=== PATIENT | female | born 1950 | race Caucasian/White ===

== ENCOUNTER 2017-02-26 08:39 | Emergency (ER) | payer OTHER ==
[~2017-02-26] VITALS: Ht 167.6 cm; Wt 49.9 kg
--- NOTE | ~2017-02-26 | EKG ---
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1950 Requested By: Abida Briones Order Number: [id number] MD: Parminder Celis Measurements Intervals [place] Rate: 116 P: 58 NH: 152 QRS: -2 QRSD: 77 T: 84 QT: 336 QTc: 467 Interpretive Statements Sinus tachycardia Probable left atrial enlargement Probable left ventricular hypertrophy Anterior Q waves, possibly due to LVH No previous ECG available for comparison Electronically Signed On 02-26-2017 12:01:18 [employer] by Parminder Celis [email or web address] <ELECTRONICALLY SIGNED> By: Parminder Celis MD 02/26/17 1201 2 Parminder Celis MD /ROSALINO
[2017-02-26 08:39] VITALS: BP 169/113
[2017-02-26 09:04] LABS: BE(vivo) -5.9 mmol/L (-2 to +3); HCO3 18.7 mmol/L (22.0-26.0); PCO2 33.7 mmHg (35.0-45.0); PO2 83.7 mmHg (80.0-100.0); pH 7.363 (7.360-7.450); sO2 96.1 % (92.0-98.0)
[2017-02-26] MEDS ORDERED: ASA5UEC PO (09:04)
[2017-02-26] MEDS ORDERED: NORVASC 5 MG TAB5 MG PO (09:04)
[2017-02-26 09:05] LABS: HEMOGLOBIN 9.7 gm/dL (12.0-15.0); MCH 29.8 pg (26.0-34.0); RBC 3.26 mil/uL (4.20-5.00); RDW 17.9 % (10.5-14.5)
[2017-02-26] MEDS ORDERED: ROBITUSSIN100 MG/53 PO (09:05)
[2017-02-26] MEDS ORDERED: ACYCLOVIR 400400 MG PO (09:06)
[2017-02-26] MEDS ORDERED: TESSALON PERLE100 MG PO (09:06)
[2017-02-26 09:07] LABS: HEMATOCRIT 29.1 % (37.0-47.0); MCHC 33.4 g/dL (28.0-37.0); MCV 89.2 fL (80.0-100.0); WBC 2.9 thou/uL (4.0-11.0)
[2017-02-26] MEDS ORDERED: ERGOCALCIF50000 UNIT PO (09:07)
[2017-02-26] MEDS ORDERED: DAPSONE100 MG PO (09:07)
[2017-02-26 09:13] LABS: APTT 25.2 Seconds (24.5-32.8); PROTIME 10.2 Seconds (9.3-11.4)
[2017-02-26 09:20] LABS: CREATININE 8.8 mg/dL (0.6-1.0); POTASSIUM 5.4 mmol/L (3.5-5.1)
[2017-02-26 09:25] LABS: ALBUMIN 3.6 g/dL (3.4-5.0); DIRECT BILIRUBIN 0.2 mg/dL (<0.1-0.3); TOTAL BILIRUBIN 0.9 mg/dL (<0.1-1.0); TOTAL PROTEIN 6.7 g/dL (6.4-8.2)
[2017-02-26 09:28] LABS: TROPONIN-I 0.08 ng/mL (<0.06)
[2017-02-26 10:20] LABS: ABSOLUTE NEUTROPHILS 1.9 thou/uL (1.4-8.2); PLATELET COUNT 44 thou/uL (150-400); PLATELET ESTIMATE DECREASED
[2017-02-26 14:07] VITALS: BP 155/89
== END 2017-02-26 14:15 | disposition short-term general hospital (02) ==
LOC: ER 08:39 → EROBS 09:46
PROVIDERS: Emergency Medicine
DX: J96.90 Respiratory failure, unspecified, unspecified whether with hypoxia or hypercapnia (principal); R07.9 Chest pain, unspecified; E87.5 Hyperkalemia; D61.818 Other pancytopenia

== ENCOUNTER 2019-05-22 13:18 | Emergency (ER) | payer OTHER ==
[~2019-05-22] VITALS: Ht 167.6 cm; Wt 49.9 kg
[~2019-05-22 13:18] MED LIST: ACYCLOVIR 400400 MG PO; ASA5UEC PO; DAPSONE100 MG PO; ERGOCALCIF50000 UNIT PO; NORVASC 5 MG TAB5 MG PO; ROBITUSSIN100 MG/53 PO; TESSALON PERLE100 MG PO
[2019-05-22 13:45] LABS: ABSOLUTE NEUTROPHILS 7.9 thou/uL (1.4-8.2); BASOPHILS 0.4 % (0.0-2.0); EOSINOPHILS 0.2 % (0.0-3.0); HEMATOCRIT 32.1 % (37.0-47.0); HEMOGLOBIN 10.9 gm/dL (12.0-15.0); LYMPHOCYTES 15.8 % (24.0-44.0); MCH 31.1 pg (26.0-34.0); MCHC 33.8 g/dL (28.0-37.0); MCV 91.9 fL (80.0-100.0); MONOCYTES 11.1 % (1.0-8.0); PLATELET COUNT 177 thou/uL (150-400); POLYS 72.5 % (36.0-66.0); RBC 3.49 mil/uL (4.20-5.00); RDW 16.4 % (10.5-14.5); WBC 10.9 thou/uL (4.0-11.0)
[2019-05-22 14:02] LABS: CALCIUM 8.5 mg/dL (8.5-10.1); POTASSIUM 4.1 mmol/L (3.5-5.1)
[2019-05-22 14:08] LABS: ALBUMIN 2.7 g/dL (3.4-5.0); TOTAL BILIRUBIN 0.7 mg/dL (<0.1-1.0); TOTAL PROTEIN 5.5 g/dL (6.4-8.2)
[2019-05-22 15:16] LABS: URINE BILIRUBIN NEGATIVE (Negative); URINE BLOOD NEGATIVE (Negative); URINE CLARITY CLEAR; URINE COLOR YELLOW; URINE GLUCOSE-RANDOM* NEGATIVE (Negative); URINE KETONES TRACE (Negative); URINE LEUKOCYTES-REFLEX NEGATIVE (Negative); URINE NITRITE-REFLEX NEGATIVE (Negative); URINE PROTEIN (DIPSTICK) TRACE (Negative); URINE SPECIFIC GRAVITY 1.025 (1.005-1.035)
[2019-05-22 16:09] VITALS: BP 118/72
--- NOTE | 2019-05-23 09:57 | EKG ---
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 : 1950 Requested By: Levi Sellers Order Number: [id number] MD: Renato Squires Measurements Intervals [place] Rate: 75 P: 69 SD: 156 QRS: 27 QRSD: 89 T: 54 QT: 409 QTc: 457 Interpretive Statements Sinus rhythm Consider left ventricular hypertrophy Compared to ECG 02/26/2017 08:43:54 Sinus tachycardia no longer present Electronically Signed On 05-23-2019 9:55:48 CDT by Renato Squires [email or web address] <ELECTRONICALLY SIGNED> By: Renato Squires MD, FACC 05/23/19 [id number] Renato Squires MD, [facility] /EPI
== END 2019-05-22 16:10 | disposition home or self-care (01) ==
LOC: ER 13:18
PROVIDERS: Emergency Medicine
DX: I95.9 Hypotension, unspecified (principal); R19.7 Diarrhea, unspecified; I10 Essential (primary) hypertension